=== PATIENT | male | born 1985 | race Caucasian/White ===

== ENCOUNTER 2017-02-05 13:36 | Emergency (ER) | payer SELFPAY ==
[~2017-02-05] VITALS: Ht 180.3 cm; Wt 104.5 kg
[2017-02-05] MEDS ORDERED: ACET1TAB17 PO (13:45)
[2017-02-05] MEDS ORDERED: CLEO300C2 PO (15:21)
[2017-02-05] MEDS ORDERED: NORCOTAB PO ×2 (15:21→15:22)
[2017-02-05 15:27] VITALS: BP 139/103
== END 2017-02-05 15:32 | disposition home or self-care (01) ==
LOC: M ED 13:36
DX: K04.7 Periapical abscess without sinus (principal); K02.9 Dental caries, unspecified; R68.84 Jaw pain

== ENCOUNTER 2022-01-25 09:48 | Emergency (ER) | payer SELFPAY ==
[~2022-01-25] VITALS: Ht 180.3 cm; Wt 98.3 kg
[~2022-01-25 09:48] MED LIST: ACET1TAB55 PO; CLEO300C2 PO; HYDR-3715 PO
[2022-01-25 11:59] LABS: APPEARANCE, URINE MANUAL CLEAR (CLEAR); COLOR, URINE MANUAL YELLOW (YELLOW); GLUCOSE, URINE (UA) MANUAL 4+(1000 MG/DL) mg/dL (NEGATIVE); PH,URINE MAN 5.5 UNITS (5.0 - 7.0); PROTEIN, URINE MANUAL NEGATIVE (NEGATIVE); SPECIFIC GRAVITY,URINE MANUAL 1.015 (1.002-1.035)
[2022-01-25 12:00] LABS: BILIRUBIN, URINE MANUAL NEGATIVE (NEGATIVE); BLOOD URINE MANUAL NEGATIVE (NEGATIVE); KETONE, URINE MANUAL NEGATIVE (NEGATIVE); LEUKOCYTE ESTERASE, URINE MAN NEGATIVE (NEGATIVE); NITRITE, URINE MANUAL NEGATIVE (NEGATIVE); UROBILINOGEN, URINE MANUAL NORMAL (NORMAL)
[2022-01-25] MEDS ORDERED: HYDR25OIN TOP (12:30)
[2022-01-25] MEDS ORDERED: CLOT1CRE56 TOP (12:30)
[2022-01-25 12:35] VITALS: BP 160/98
[2022-01-25 13:27] LABS: GC DNA AMPLIFICATION NEGATIVE (NEGATIVE)
== END 2022-01-25 12:43 | disposition home or self-care (01) ==
LOC: M ED 09:48
DX: N48.1 Balanitis (principal); I86.1 Scrotal varices; N43.40 Spermatocele of epididymis, unspecified